=== PATIENT | male | born 1970 ===

== ENCOUNTER 2020-09-28 19:23 | Observation (INO) ==
[2020-09-28] MEDS ORDERED: hydrALAZINE 20 MG/1 ML VIAL IV PRN (21:57)
[2020-09-28] MEDS ORDERED: GLUCAGON 1 MG VIAL IM PRN ×2 (22:11)
[2020-09-28] MEDS ORDERED: guaiFENesin/DM ER 600-30 MG TABLET PO PRN (22:11)
[2020-09-28] MEDS ORDERED: ACETAMINOPHEN 325 MG TABLET PO PRN (22:11)
[2020-09-28] MEDS ORDERED: ONDANSETRON 4 MG/2 ML VIAL IV PRN (22:11)
[2020-09-28] MEDS ORDERED: DEXTROSE 50% 25 GM/50 ML VIAL IV PRN ×2 (22:11)
[2020-09-28] MEDS ORDERED: BISACODYL 5 MG TABLET PO PRN (22:11)
[2020-09-28] MEDS ORDERED: diphenhydrAMINE CAP 25 MG CAPSULE PO PRN (22:11)
[2020-09-28] MEDS ORDERED: NICOTINE 21 MG/24 HR PATCH TRANSDERM PRN (22:11)
[2020-09-28] MEDS ORDERED: ZALEPLON 5 MG CAPSULE PO PRN (22:11)
[2020-09-28 22:20] LABS: Basophils # 0.1 10*3/uL (0.0-0.2); Basophils % 0.5 % (0.0-0.8); Eosinophils # 0.2 10*3/uL (0.0-0.87); Eosinophils % 1.7 % (0.00-10.9); Hematocrit 43.9 VOL% (42.0-52.0); Hemoglobin 14.6 GM/DL (14.0-18.0); Immature Granulocytes % 0.4 %; Immature Granulocytes Absolute 0.04 #; Lymphocytes # 2.8 10*3/uL (1.4-4.0); Mean Corpuscular HGB Conc 33.3 GM/DL (32-36); Mean Platelet Volume 8.5 FL (9.6-12.0); Monocytes % 10.7 % (1.7-12.7); Neutrophils % 60.7 % (38.7-73.9); Platelet Count 262 T/CUMM (130-400); Red Blood Count 4.88 MC/CUMM (3.8-5.5); Red Cell Distribution Width 12.2 % (9.3-17.3); White Blood Count 10.9 T/CUMM (4-12)
[2020-09-28 22:30] LABS: PT Patient Result 11.4 SECS (10.5-12.0); Partial Thromboplastin Time 31.5 SECS (23.9-33.8)
[2020-09-28] MEDS ORDERED: NITROGLYCERIN SL 0.4 MG TABLET SL PRN (23:57)
[2020-09-29 07:56] LABS: Calcium 8.1 MG/DL (8.5-10.1); Potassium 3.2 MMOL/L (3.5-5.1)
[2020-09-29] MEDS ORDERED: POTASSIUM BICARB EFFERVESCENT 20 MEQ TAB.EFF PO ONE (08:48)
[2020-09-29] MEDS ORDERED: PANTOPRAZOLE 40 MG TABLET PO SCH (09:00)
[2020-09-29] MEDS ORDERED: ENOXAPARIN 40 MG/0.4 ML SYRINGE SUBCUT SCH (09:00)
[2020-09-29] MEDS ORDERED: ASPIRIN EC 81 MG TABLET PO SCH (09:00)
[2020-09-29] MEDS ORDERED: lisinopriL 10 MG TABLET PO SCH (09:00)
[2020-09-29] MEDS: INSULIN LISPRO 100 UNIT/ML SUBCUT SCH ×2 (09:35→11:32)
[2020-09-29 11:33] VITALS: BP 145/81
== END 2020-09-29 13:40 | disposition home or self-care (01) ==
LOC: N.TELEN → SUATTDRO 21:21
PROVIDERS: ADMIT Internal Medicine; ATTEND Internal Medicine